=== PATIENT | female | born 1985 | race Caucasian/White ===

== ENCOUNTER → 2016-08-06 | Outpatient (CLI) | payer OTHER | END | disposition home or self-care (01) | LOC: PTH.S 09:00 → RAD.S 09:30 | DX: M54.2 Cervicalgia (principal); R07.89 Other chest pain; R91.8 Other nonspecific abnormal finding of lung field ==

== ENCOUNTER → 2016-10-15 | Outpatient (CLI) | payer OTHER | END | disposition home or self-care (01) | LOC: RAD.S 12:30 | DX: R60.9 Edema, unspecified (principal); R10.9 Unspecified abdominal pain; K59.00 Constipation, unspecified; Z90.49 Acquired absence of other specified parts of digestive tract; Z98.890 Other specified postprocedural states ==